=== PATIENT | female | born 1980 | race Two or more races ===

== ENCOUNTER 2018-12-16 17:06 | Emergency (ER) | payer BC ==
[~2018-12-16] VITALS: Ht 170.2 cm; Wt 74.4 kg
--- NOTE | 2018-12-16 17:20 | NUR ---
BIBSELF FOR C/O DIZZINESS, HEAD PRESSURE AND BLURRY VISION STARTED 2AM. PATIENT ASSISTED TO RESTROOM, ABLE TO GIVE A URINE SAMPLE, UA SENT TO LAB. PATIENT A/OX4, NO RESP DISTRESS. C/O HEADACHE AND DIZZINESS AT THIS TIME. NEEDS ATTENDED, ATTACHED TO THE MONITOR.
[2018-12-16] MEDS ORDERED: METOCLOPRAMIDE HCL 10 MG/2 ML VIAL ONE (17:59)
[2018-12-16] MEDS ORDERED: KETOROLAC TROMETHAMINE 15 MG/ML VIAL ONE (17:59)
[2018-12-16] MEDS ORDERED: diphenhydrAMINE HCL 50 MG/ML VIAL ONE (17:59)
[2018-12-16] MEDS ORDERED: METOCLOPRAMIDE HCL 10 MG/2 ML VIAL IV ONE (18:00)
[2018-12-16] MEDS ORDERED: KETOROLAC TROMETHAMINE INJ 30 MG/ML VIAL IV ONE (18:00)
[2018-12-16] MEDS ORDERED: diphenhydrAMINE HCL 50 MG/ML VIAL IV ONE (18:00)
[2018-12-16 18:02] LABS: BASOPHILS % (AUTO) 0.3 % (0.0-2.0); EOSINOPHILS % (AUTO) 0.9 % (0.0-6.0); HEMATOCRIT 41 % (33-45); HEMOGLOBIN 13.6 g/dL (11.5-14.8); LYMPHOCYTES # (AUTO) 1.5 /CMM (0.8-4.8); LYMPHOCYTES % (AUTO) 37.2 % (20.0-44.0); MEAN CORPUSCULAR HGB CONC 34 g/dl (31.0-36.0); MEAN CORPUSCULAR VOLUME 98 fL (82-100); MONOCYTES # (AUTO) 0.2 /CMM (0.1-1.30); MONOCYTES % (AUTO) 5.5 % (2.0-12.0); NEUTROPHILS # (AUTO) 2.3 /CMM (1.8-8.9); NEUTROPHILS % (AUTO) 56.1 % (43.0-81.0); PLATELET COUNT (AUTO) 154 /CMM (150-450); RED BLOOD CELL COUNT(AUTO) 4.16 MIL/uL (4.0-5.2)
[2018-12-16 18:03] LABS: APPEARANCE,URINE Clear (CLEAR); BILIRUBIN,URINE SMALL (NEGATIVE); BLOOD, URINE Negative Ery/uL (NEGATIVE); COLOR,URINE Yellow (YELLOW); KETONES,URINE 15 (NEGATIVE); LEUKOCYTE ESTERASE ,URINE Negative (NEGATIVE); NITRITE, URINE Negative (NEGATIVE); PROTEIN,URINE Negative (NEGATIVE); UGLUCOSE Negative (NEGATIVE); UROBILINOGEN,URINE 0.2 EU/dL (0.2)
[2018-12-16 18:14] LABS: CALCIUM, SERUM 9.1 mg/dL (8.5-10.1); CREATININE 0.8 mg/dL (0.6-1.3); POTASSIUM 3.7 mmol/L (3.5-5.1)
[2018-12-16 18:16] LABS: BACTERIA,URINE Rare /HPF (None Seen); RBC,URINE NONE SEEN /HPF (0-2); SQUAMOUS EPITHELIAL CELL,UR Few /HPF (None Seen); WBC,URINE NONE SEEN /HPF (0-3)
[2018-12-16 18:19] LABS: ALBUMIN 3.8 g/dL (3.4-5.0); BILIRUBIN,TOTAL 0.7 mg/dL (0.2-1.0); TOTAL PROTEIN, SERUM 6.8 g/dL (6.4-8.2)
--- NOTE | 2018-12-16 19:30 | NUR ---
PATIENT VERBALIZED SHE FEELS BETTER, PIV REMOVED, RX PROVIDED, Patient discharged to home in stable condition. Written and verbal after care instructions given. Patient verbalizes understanding of instruction.
[2018-12-16 19:31] VITALS: BP 107/68
== END 2018-12-16 19:32 | disposition home or self-care (01) ==
LOC: ER 17:11
DX: R51 Headache (principal); D64.9 Anemia, unspecified
CPT/HCPCS: 36415; 80053; 81001; 84703; 85025; 96374; 96375; 99283; A4216; J1200; J1885; J2765; 81000-TC

== ENCOUNTER 2020-01-31 15:04 | Inpatient (IN) | payer BC ==
[2020-01-30 21:25] VITALS: BP 95/56
[~2020-01-31] VITALS: Ht 170.2 cm; Wt 63.7 kg
--- NOTE | 2020-01-31 15:32 | NUR ---
BIBS FROM HOME TO ER BED 7. AAOX4. NOT IN RESP DISTRESS, BREATHING EVEN AND UNLABORED. AMBULATORY. CAME IN FOR FEVER AND SORE THRAOT X 10 DAYS. TEMP NOTED @ 99.1. PT REPORTS THAT SHE FEELS HER THROAT IS SWOLLEN, AIRWAY PATENT, TALKING IN FULL SENTENCES. MD WAS AT THE BEDSIDE FOR EVAL. ORDERS RECEIVED NOTED AND CARRIED OUT.
[2020-01-31] MEDS ORDERED: ACETAMINOPHEN 325 MG TABLET PO ONE (16:00)
[2020-01-31] MEDS ORDERED: NS 0.9% IV ONE (16:00)
[2020-01-31] MEDS ORDERED: ACETAMINOPHEN 325 MG TABLET ONE (16:06)
--- NOTE | 2020-01-31 16:07 | NUR ---
US AT BEDSIDE
[2020-01-31 16:52] LABS: BASOPHILS % (AUTO) 0.2 % (0.0-2.0); EOSINOPHILS % (AUTO) 0.4 % (0.0-6.0); HEMATOCRIT 34 % (33-45); HEMOGLOBIN 11.3 g/dL (11.5-14.8); LYMPHOCYTES # (AUTO) 1.1 /CMM (0.8-4.8); LYMPHOCYTES % (AUTO) 20.8 % (20.0-44.0); MEAN CORPUSCULAR HGB CONC 34 g/dl (31.0-36.0); MEAN CORPUSCULAR VOLUME 95 fL (82-100); MONOCYTES # (AUTO) 0.4 /CMM (0.1-1.30); MONOCYTES % (AUTO) 7.2 % (2.0-12.0); NEUTROPHILS # (AUTO) 3.9 /CMM (1.8-8.9); NEUTROPHILS % (AUTO) 71.4 % (43.0-81.0); PLATELET COUNT (AUTO) 178 /CMM (150-450); RED BLOOD CELL COUNT(AUTO) 3.54 MIL/uL (4.0-5.2); WHITE BLOOD COUNT (AUTO) 5.5 K/uL (4.3-11.0)
[2020-01-31 16:58] LABS: APPEARANCE,URINE Clear (CLEAR); BILIRUBIN,URINE Negative (NEGATIVE); BLOOD, URINE Negative Ery/uL (NEGATIVE); COLOR,URINE Yellow (YELLOW); KETONES,URINE Negative (NEGATIVE); LEUKOCYTE ESTERASE ,URINE Negative (NEGATIVE); NITRITE, URINE Negative (NEGATIVE); PROTEIN,URINE Negative (NEGATIVE); UGLUCOSE Negative (NEGATIVE); UROBILINOGEN,URINE 0.2 EU/dL (0.2)
[2020-01-31 17:07] LABS: ALANINE AMINOTRANSFERASE 21 U/L (12-78); ALBUMIN 3.3 g/dL (3.4-5.0); ALKALINE PHOSPHATASE 75 U/L (46-116); ASPARTATE AMINOTRANSFERASE 17 U/L (15-37); BILIRUBIN,DIRECT 0.2 mg/dL (0.0-0.2); BILIRUBIN,TOTAL 0.9 mg/dL (0.2-1.0); CALCIUM, SERUM 9.8 mg/dL (8.5-10.1); CARBON DIOXIDE 23 mmol/L (21-32); CHLORIDE 102 mmol/L (98-107); CREATININE 0.7 mg/dL (0.6-1.3); GLUCOSE 91 mg/dL (74-106); POTASSIUM 3.7 mmol/L (3.5-5.1); SODIUM SERUM 139 mmol/L (136-145); TOTAL PROTEIN, SERUM 8.1 g/dL (6.4-8.2); UREA NITROGEN, BLOOD 8 mg/dL (7-18)
[2020-01-31] MEDS ORDERED: IV NS 0.9% 250 ML IV ONE (17:38)
[2020-01-31] MEDS ORDERED: IOHEXOL-350 100 ML VIAL IV ONE (17:38)
--- NOTE | 2020-01-31 17:47 | NUR ---
PT TO CT ON [facility]
[2020-01-31 18:04] LABS: THYROID STIMULATING HORMONE < 0.007 uIU/mL (0.358-3.74)
--- NOTE | 2020-01-31 21:15 | NUR ---
REPORT GIVEN TO ED DAVID FOR OLGA LIDIA
[2020-01-31 21:25] VITALS: BP 95/56
--- NOTE | 2020-01-31 21:25 | NUR ---
ITALIAN TEACHER OPENING NOTES PATIENT ADMITTED FOR ACUTE THYROIDITIS. TRANSFERRED VIA GURNEY IN STABLE CONDITION. A/OX4; AMBULATORY WITH STEADY GAIT. STABLE ON RA; NO S/S OF ACUTE RESPIRATORY DISTRESS; BREATHING IS EVEN AND UNLABORED; LUNG SOUNDS CLEAR THROUGHOUT. TELE MONITOR READING SINUS TACH, HEART RATE 103. SLIGHT SWELLING NOTED ON NECK; PATIENT C/O SLIGHT PAIN; PHOTOS TAKEN AND PLACED IN CHART. IV PRESENT ON LEFT HAND, SIZE 20 & RIGHT AC, SIZE 18 BOTH INTACT & PATENT, HEP LOCKED. BELONGINGS LIST REVIEWED WITH PATIENT. MRSA SWAB AND RAPID COVID TEST PERFORMED IN ER; COVID RESULTED NEGATIVE. ADMITTING ORDERS RECEIVED FROM TISSUE INSERTER GUTIERREZ BUCHANAN. SAFETY MEASURES IN PLACE AND PATIENT'S NEEDS MET. BED LOCKED, SIDE RAILS X2, CALL LIGHT WITHIN REACH. WILL CONTINUE TO MONITOR.
[2020-01-31] MEDS ORDERED: HYDROCODONE/APAP 5/325MG TABLET PO PRN (21:30)
[2020-01-31] MEDS ORDERED: MAG HYDROX/AL HYDROX/SIMETH 30 ML UDC PO PRN (21:30)
[2020-01-31] MEDS ORDERED: ONDANSETRON HCL/PF 4 MG/2 ML VIAL IVP PRN (21:30)
[2020-01-31] MEDS ORDERED: Z GUARD REMEDY 2 OZ OINT TP PRN (21:30)
[2020-01-31] MEDS ORDERED: ZOLPIDEM TARTRATE 5 MG TABLET PO PRN (21:30)
[2020-01-31] MEDS: METOPROLOL TARTRATE 25 MG TABLET PO SCH (21:30)
[2020-01-31] MEDS ORDERED: MAGNESIUM HYDROXIDE 30 ML UDC PO PRN (21:30)
--- NOTE | 2020-01-31 21:33 | NUR ---
PT TRANSPORTED TO UNIT ON GURNEY WITH EMT AND RN AT BEDSIDE W/ ACLS PROTOCOL. NAD NOTED DURINF TRANSPORT. PT AMBULATED FROM GURNEY TO BED ON STEADY GAIT.
[2020-01-31 21:57] VITALS: BP 95/56
--- NOTE | 2020-01-31 22:58 | NUR ---
PSYCH ASSISTANT NOTES VTE SCORE 0; CHARGE NURSE MADE AWARE.
[2020-01-31] MEDS: ACETAMINOPHEN 325 MG TABLET PO PRN (23:02)
[2020-01-31] MEDS ORDERED: IBUPROFEN 600 MG TABLET PO PRN (23:30)
[2020-02-01 04:00] VITALS: BP 96/51
[2020-02-01 06:41] LABS: BASOPHILS % (AUTO) 0.2 % (0.0-2.0); EOSINOPHILS % (AUTO) 1.4 % (0.0-6.0); HEMATOCRIT 29 % (33-45); HEMOGLOBIN 9.8 g/dL (11.5-14.8); LYMPHOCYTES % (AUTO) 40.9 % (20.0-44.0); MEAN CORPUSCULAR HGB CONC 34 g/dl (31.0-36.0); MEAN CORPUSCULAR VOLUME 94 fL (82-100); MONOCYTES # (AUTO) 0.3 /CMM (0.1-1.30); MONOCYTES % (AUTO) 10.7 % (2.0-12.0); NEUTROPHILS # (AUTO) 1.1 /CMM (1.8-8.9); NEUTROPHILS % (AUTO) 46.8 % (43.0-81.0); PLATELET COUNT (AUTO) 146 /CMM (150-450); WHITE BLOOD COUNT (AUTO) 2.4 K/uL (4.3-11.0)
[2020-02-01 06:46] LABS: CARBON DIOXIDE 26 mmol/L (21-32); CHLORIDE 107 mmol/L (98-107); CREATININE 0.5 mg/dL (0.6-1.3); GLUCOSE 89 mg/dL (74-106); MAGNESIUM 1.9 mg/dL (1.8-2.4); PHOSPHORUS 4.8 mg/dL (2.5-4.9); SODIUM SERUM 141 mmol/L (136-145); UREA NITROGEN, BLOOD 7 mg/dL (7-18)
[2020-02-01 06:55] LABS: CHOLESTEROL 81 mg/dL (<200); HDL CHOLESTEROL 33 mg/dL (40-60); LDL 43 mg/dL (0-99); THYROID STIMULATING HORMONE < 0.007 uIU/mL (0.358-3.74); TRIGLYCERIDES 34 mg/dL (30-150)
--- NOTE | 2020-02-01 07:35 | NUR ---
TELE/RN OPENING NOTES RECEIVED PATIENT ON BED SLEEPING, EASILY AROUSABLE BY NAME AND LIGHT TOUCH. ALERT AND ORIENTED X4. DENIES PAIN AT THIS TIME. IN ROOM AIR. PATIENT IS ON TELE MONITOR ST 100-110BPM. WILL CONTINUE TO MONITOR.
--- NOTE | 2020-02-01 07:59 | NUR ---
SENIOR FRONT END ENGINEER CLOSING NOTES PATIENT SLEEPING IN BED, EASY TO AWAKEN. A/OX4. STABLE ON RA. NO S/S OF ACUTE RESPIRATORY DISTRESS AND NO C/O PAIN. IV PRESENT ON RIGHT AC, SIZE 18, INTACT & PATENT, HEP LOCKED. SAFETY MEASURES IN PLACE AND PATIENT'S NEEDS MET. ENDORSED TO DAY SHIFT RN PLAN OF CARE.
[2020-02-01 08:00] VITALS: BP 100/55
[2020-02-01] MEDS: METOPROLOL TARTRATE 25 MG TABLET PO SCH ×2 (08:34→20:42)
[2020-02-01] MEDS: IV NS 0.9% 1,000 ML IV PRN (11:25)
[2020-02-01] MEDS: ACETAMINOPHEN 325 MG TABLET PO PRN ×2 (11:50→20:05)
[2020-02-01 16:00] VITALS: BP 103/57
--- NOTE | 2020-02-01 18:50 | NUR ---
MS/RN CLOSING NOTES PATIENT IS ON BED ALERT AND ORIENTED X4. PATIENT DENIES PAIN AT THIS TIME. PATIENT IS ON ROOM AIR SATURATION OF 98%. RESPIRATION REGULAR AND UNLABORED. IV ACCESS AT RIGHT AC # 18G PATENT AND INTACT. SEEN AND EXAMINED BY MD WITH ORDERS MADE AND CARRIED OUT. ALL DUE MEDICATION WAS GIVEN. SAFETY PRECAUTION IN PLACED. CHECKED PATIENT EVERY 2 HOURS. BED IN LOWEST POSITION AND LOCKED. SIDE RAILS UP X2. CALL LIGHT WITH IN REACH. WILL ENDORSED TO [place] MACHINE OPERATOR FOR OLGA LIDIA.
--- NOTE | 2020-02-01 19:21 | NUR ---
MS RN OPENING NOTES PATIENT AWAKE IN BED. A/OX4. STABLE ON RA. NO S/S OF ACUTE RESPIRATORY DISTRESS AND NO C/O PAIN. IV PRESENT ON RIGHT AC, SIZE 18, INTACT & PATENT, NS RUNNING AT 100 ML/HR. SAFETY MEASURES IN PLACE AND PATIENT'S NEEDS MET. BED LOCKED, HOB ELEVATED, SIDE RAILS X2, CALL LIGHT WITHIN REACH. WILL CONTINUE TO MONITOR.
[2020-02-01 20:12] VITALS: BP 92/40
[2020-02-01 20:22] VITALS: BP 92/40
[2020-02-02] MEDS: IV NS 0.9% 1,000 ML IV PRN (00:43)
[2020-02-02 06:26] LABS: BASOPHILS % (AUTO) 0.2 % (0.0-2.0); EOSINOPHILS % (AUTO) 0.9 % (0.0-6.0); HEMATOCRIT 29 % (33-45); HEMOGLOBIN 10.1 g/dL (11.5-14.8); LYMPHOCYTES % (AUTO) 29.7 % (20.0-44.0); MEAN CORPUSCULAR HGB CONC 34 g/dl (31.0-36.0); MEAN CORPUSCULAR VOLUME 93 fL (82-100); MONOCYTES # (AUTO) 0.3 /CMM (0.1-1.30); MONOCYTES % (AUTO) 8.9 % (2.0-12.0); NEUTROPHILS # (AUTO) 1.9 /CMM (1.8-8.9); NEUTROPHILS % (AUTO) 60.3 % (43.0-81.0); PLATELET COUNT (AUTO) 153 /CMM (150-450); RED BLOOD CELL COUNT(AUTO) 3.16 MIL/uL (4.0-5.2); WHITE BLOOD COUNT (AUTO) 3.2 K/uL (4.3-11.0)
[2020-02-02 06:57] LABS: CALCIUM, SERUM 9.1 mg/dL (8.5-10.1); CREATININE 0.5 mg/dL (0.6-1.3); POTASSIUM 3.7 mmol/L (3.5-5.1)
--- NOTE | 2020-02-02 07:25 | NUR ---
MS RN CLOSING NOTES PATIENT SLEEPING IN BED, EASY TO AWAKEN. A/OX4. STABLE ON RA. NO S/S OF ACUTE RESPIRATORY DISTRESS AND NO C/O PAIN. IV PRESENT ON RIGHT AC, SIZE 18, INTACT & PATENT, NS RUNNING AT 100 ML/HR. SAFETY MEASURES IN PLACE AND PATIENT'S NEEDS MET. WILL ENDORSE TO DAY SHIFT NURSE PLAN OF CARE.
--- NOTE | 2020-02-02 07:30 | NUR ---
ms rn received patient on bed,awake,alert,oriented x4,not in any form of distress, respirations even and unlabored,no sob noted, lungs are clear,abdomen soft,positive bowel sounds,denies pain at this time,all needs attended.
[2020-02-02 08:00] VITALS: BP 98/55
--- NOTE | 2020-02-02 08:30 | NUR ---
ms rn breakfast served, metoprolol held at this time,due to low b/p, dr. hankins came to see patient, possible d/c today, patient is aware.
[2020-02-02 09:00] VITALS: BP 98/55
[2020-02-02] MEDS: METOPROLOL TARTRATE 25 MG TABLET PO SCH (09:00)
--- NOTE | 2020-02-02 12:00 | NUR ---
ms rn called [facility] for nuclear procedure,patient had ct angio yesterday and should be after 2 weeks to do thyroid scan due to contrast induction per sharon's recommendation,and ok for him to go home today and have a follow up to [place] always welcome to have her thyroid scan here as out patient.
--- NOTE | 2020-02-02 16:20 | NUR ---
ms rn bsn instruction given and understood, patient went home w/ prescription of metoprolol, was pickling solution maker by , all needs attended.
== END 2020-02-02 16:25 | disposition home or self-care (01) | DRG 644 ==
LOC: ER 15:04 → TELE 20:53 → MED 02-01 11:19
PROVIDERS: ADMIT Student in an Organized Health Care Education/Training Program; ATTEND Internal Medicine
DX: E06.0 Acute thyroiditis (principal); E44.1 Mild protein-calorie malnutrition; E05.00 Thyrotoxicosis with diffuse goiter without thyrotoxic crisis or storm; D64.9 Anemia, unspecified; E05.90 Thyrotoxicosis, unspecified without thyrotoxic crisis or storm; Z98.890 Other specified postprocedural states
CPT/HCPCS: 36415; 71045-TC; 76536-TC; 80048-TC; 80061-TC; 80076-TC; 81000-TC; 83540-TC; 83605-TC; 83735-TC; 84100-TC; 84439-TC; 84443-TC; 84484-TC; 84702-TC; 85025-TC; 85378-TC; 85730-TC; 86403-TC; 87040-TC; 87070-TC; 87081-TC; 87086-TC; C9803-CS; G0378; J7030; J7050; Q9967